=== PATIENT | male | born 1945 ===

== ENCOUNTER 2018-09-23 09:57 | Inpatient (IN) | payer OTHER ==
[~2018-09-23] VITALS: Ht 170.2 cm; Wt 86.2 kg
--- NOTE | 2018-09-23 11:17 | NUR ---
PACIENTE ALERTA Y ACTIVO ACOMPANADO DE FAMILIARES, EVALUADO POR EL DR. GR SE ORIENTA A PACIENTE Y FAMILAIRES SOBRE TRATAMEINTO MEDICO SE EXTRAEN MUESTARS DE ZOEY Y SE ADMISNITRAN MEDICAMENTOS REBECCA ORDEN MEDICA BAJO MEDIDAS ASEPTICAS.
== END 2018-09-30 17:09 | disposition left against medical advice (07) | DRG 441 ==
LOC: ER 09:57 → SEC-K 18:54 → MEDJ 18:54 → SURG 19:54 → SEC-K 20:30 → MEDJ 21:26
PROVIDERS: ADMIT Internal Medicine
PROC: BW28ZZZ Computerized Tomography (CT Scan) of Head (ICD-10-PCS; 2018-09-23)
PROC: 4A033R1 Measurement of Arterial Saturation, Peripheral, Percutaneous Approach (ICD-10-PCS; 2018-09-23)
PROC: 5A1935Z Respiratory Ventilation, Less than 24 Consecutive Hours (ICD-10-PCS; principal; 2018-09-30)
PROC: 0BH17EZ Insertion of Endotracheal Airway into Trachea, Via Natural or Artificial Opening (ICD-10-PCS; 2018-09-30)
PROC: 3E0F7GC Introduction of Other Therapeutic Substance into Respiratory Tract, Via Natural or Artificial Opening (ICD-10-PCS; 2018-09-30)
PROC: 0T9B70Z Drainage of Bladder with Drainage Device, Via Natural or Artificial Opening (ICD-10-PCS; 2018-09-30)
PROC: 4A12X4Z Monitoring of Cardiac Electrical Activity, External Approach (ICD-10-PCS; 2018-09-30)
DX: K72.01 Acute and subacute hepatic failure with coma (principal); J96.01 Acute respiratory failure with hypoxia; E87.1 Hypo-osmolality and hyponatremia; E27.1 Primary adrenocortical insufficiency; E87.4 Mixed disorder of acid-base balance; N17.8 Other acute kidney failure; F10.288 Alcohol dependence with other alcohol-induced disorder; Z99.81 Dependence on supplemental oxygen; R41.0 Disorientation, unspecified; B37.9 Candidiasis, unspecified; I95.89 Other hypotension

== ENCOUNTER → 2018-09-30 | Emergency (ER) | payer OTHER | END | disposition E | LOC: ER 17:07 ==